=== PATIENT | female | born 1985 | race Caucasian/White ===

== ENCOUNTER 2021-07-20 22:05 | Emergency (ER) | payer SELFPAY ==
[~2021-07-20] VITALS: Ht 167.6 cm; Wt 72.6 kg
--- NOTE | 2021-07-20 22:16 | NUR ---
patient taken to room 4, waiting to be seen by ER physician.
--- NOTE | 2021-07-20 22:21 | NUR ---
doctor evaluating patient at this time.
[2021-07-20] MEDS ORDERED: KETOROLAC TROMETHAMINE 60 MG INJ IM ONE ×2 (22:34→22:45)
--- NOTE | 2021-07-20 22:49 | NUR ---
radiology here to take patient for testing
--- NOTE | 2021-07-20 23:15 | NUR ---
Pt back to ER from CT.
--- NOTE | 2021-07-20 23:30 | NUR ---
patient back from radiology department.
[2021-07-21] MEDS ORDERED: HYDR-4209 PO (00:01)
--- NOTE | 2021-07-21 00:03 | NUR ---
doctor martin reviewed results with patient. discharge paper work given and understood
[2021-07-21 00:09] VITALS: BP 114/70
== END 2021-07-21 00:11 | disposition home or self-care (01) ==
LOC: ER 22:14
DX: S16.1XXA Strain of muscle, fascia and tendon at neck level, initial encounter (principal); S23.3XXA Sprain of ligaments of thoracic spine, initial encounter; S80.02XA Contusion of left knee, initial encounter; S20.219A Contusion of unspecified front wall of thorax, initial encounter; V49.49XA Driver injured in collision with other motor vehicles in traffic accident, initial encounter; Y92.410 Unspecified street and highway as the place of occurrence of the external cause; M41.9 Scoliosis, unspecified; Z88.6 Allergy status to analgesic agent
CPT/HCPCS: 71045; 72072; 72125; 73564; 96372; 99284; J1885; A4663